=== PATIENT | female | born 2000 | race Asian ===

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

== ENCOUNTER 2022-01-15 12:51 | Outpatient (CLI) | payer MEDICAID ==
[2022-01-15 13:26] VITALS: BP 128/73
[2022-01-15] MEDS ORDERED: LACTATED RINGERS 500 ML IV ONE (14:14)
[2022-01-15 15:14] LABS: Bacteria,Urine 1+ /HPF (Negative); Mucus,Urine FEW /HPF
[2022-01-15 15:17] LABS: Bilirubin,Urine Negative (Negative); Blood,Urine Negative (Negative); Color,Urine Straw (Yellow); PH,Urine 5.5 (5.0-7.0); Urobilinogen,Urine < 2.0 mg/dL (<2.0)
== END 2022-01-15 15:38 | disposition home or self-care (01) ==
LOC: TRG 12:51 → APU 12:51 → TRG 15:38
PROVIDERS: ATTEND Obstetrics & Gynecology
DX: O47.03 False labor before 37 completed weeks of gestation, third trimester (principal); Z3A.29 29 weeks gestation of pregnancy
CPT/HCPCS: 59025; 81001

== ENCOUNTER 2022-01-18 15:19 | Outpatient (CLI) | payer MEDICAID ==
[2022-01-18] MEDS ORDERED: LACTATED RINGERS 1,000 ML ONE (16:31)
[2022-01-18] MEDS ORDERED: LACTATED RINGERS 1,000 ML IV ONE (17:00)
[2022-01-18] MEDS ORDERED: TERBUTALINE 1 MG/1 ML INJ SUB-Q SCH (17:00)
[2022-01-18 17:47] LABS: Blood,Urine NEG (Negative); Color,Urine Yellow (Yellow); Protein,Urine <15 mg/dL mg/dL (Negative); Urobilinogen,Urine < 2.0 mg/dL (<2.0)
[2022-01-18] MEDS ORDERED: BUTALB/ACETAMINOPHEN/CAFFEINE TAB PO ONE (18:00)
[2022-01-18 18:08] LABS: Bacteria,Urine 1+ /HPF (Negative); Bilirubin,Urine NEG (Negative); Mucus,Urine FEW /HPF; WBC,Urine < 1.0 /HPF (0.0-6.0)
[2022-01-18 18:34] VITALS: BP 128/60
[2022-01-18] MEDS ORDERED: LACTATED RINGERS 1,000 ML IV SCH (19:00)
== END 2022-01-18 20:10 | disposition home or self-care (01) ==
LOC: TRG 15:19 → APU 15:19 → TRG 20:10
PROVIDERS: ATTEND Obstetrics & Gynecology
DX: O26.893 Other specified pregnancy related conditions, third trimester (principal); R10.9 Unspecified abdominal pain; R51.9 Headache, unspecified; Z3A.30 30 weeks gestation of pregnancy
CPT/HCPCS: 36415; 81001; 82731; 84156

== ENCOUNTER 2022-01-19 14:00 | Inpatient (IN) | payer MEDICAID ==
[2022-01-19] MEDS ORDERED: LACTATED RINGERS 500 ML IV ONE (14:27)
[2022-01-19] MEDS ORDERED: LACTATED RINGERS 1,000 ML IV SCH (15:00)
[2022-01-19 17:01] LABS: Alanine Aminotransferase 11 units/L (7-56); Albumin 3.4 g/dL (3.9-5); Blood Urea Nitrogen 7 mg/dL (7-17); Calcium 8.9 mg/dL (8.4-10.2); Hemolysis Index 19
[2022-01-19 17:03] LABS: BUN/Creatinine Ratio 18
[2022-01-19 17:46] LABS: Creatinine,Urine 22.8 mg/dL (0.1-20.0)
[2022-01-19 18:07] LABS: Hematocrit 35.1 % (30.3-42.9); Mean Corpuscular HGB Conc 34 % (30-34); Mean Corpuscular Volume 91 fl (79-97); Platelet Count 244 K/mm3 (140-440); Red Blood Count 3.84 M/mm3 (3.65-5.03); Red Cell Distribution Width 12.6 % (13.2-15.2)
[2022-01-19 18:14] LABS: Bacteria,Urine 1+ /HPF (Negative); WBC,Urine < 1.0 /HPF (0.0-6.0)
[2022-01-19 18:15] LABS: Bilirubin,Urine Negative (Negative); Blood,Urine Negative (Negative); Color,Urine Yellow (Yellow); PH,Urine 6.5 (5.0-7.0); Urobilinogen,Urine < 2.0 mg/dL (<2.0)
[2022-01-19] MEDS ORDERED: DOCUSATE SODIUM 100 MG CAP PO PRN (19:52)
[2022-01-19] MEDS ORDERED: ACETAMINOPHEN 325 MG TAB PO PRN ×2 (19:52→22:01)
[2022-01-19] MEDS ORDERED: ACETAMINOPHEN 500 MG TAB PO ONE (20:00)
--- NOTE | 2022-01-19 20:19 | History and Physical Report ---
History of Present Illness Date of examination: 01/19/22 Date of admission: 01/19/22 Chief complaint: severe headache with left eye pain and dizziness since 01/15/22. Headaches are unrelieved by Tylenol. History of present illness: 21 y/o single AA @ 30.1 wks presented to [facility] with c/o severe headaches, left eye pain and dizziness since 01/15/22. She admitted to + and denied VB, LOF, UC, diplopia, scotoma, or epigastric pain. Pt was crying, sad and upset. She states she and her boyfriend had an argument today. She denied issues with domestic violence. Pt states she initiated her pnc early preg @ [facility] [place] location and has an uneventful preg. Pt states she came to the hospital on 01/15 and 01/18 with same complaints was diagnosed with a uti and sent home. Med/surg/ob/family hx is unremarkable. First several b/ps were slightly elevated above her normal otherwise pt's b/ps have been wnl. Urine PCR was 1.31 otherwise her PIH labs were wnl. Pt was admitted for 24hr obs, b/p monitoring, and a 24hr urine. The hospitalist was consulted and a CT scan of the head was ordered. Dr Louie was consulted and MD agreed with plan. Past History Past Medical History: no pertinent history Past Surgical History: no surgical history Family/Genetic History: none Social history: single, full code - Obstetrical History Expected Date of Delivery: 03/29/22 Actual Gestation: 30 Week(s) 1 Day(s) : 2 Para: 1 Hx # Term Pregnancies: 1 Spontaneous Abortions: 0 Induced : 0 Number of Living Children: 1 Medications and Allergies Allergies Allergy/AdvReac Type Severity Reaction Status Date / Time No Known Allergies Allergy Verified 10/16/20 11:22 Home Medications Medication Instructions Recorded Confirmed Last Taken Type One Daily Tablet 1 tab PO DAILY 10/16/20 10/16/20 1 Month Ago History ~09/16/20 Acetaminophen [Acetaminophen 8 650 mg PO Q8HR #30 tab 09/22/21 Unknown Rx Hour] Ondansetron [Zofran ODT TAB] 4 mg PO Q6HR PRN #20 tab.rapdis 09/22/21 Unknown Rx raNITIdine HCl [Zantac] 150 mg PO BID #30 tab 09/22/21 Unknown Rx Nitrofurantoin [place]/M-Cryst 100 mg PO Q12HR 7 Days #14 capsule 01/15/22 Unknown Rx [Macrobid CAP] Active Meds: Active Medications Acetaminophen (Acetaminophen 325 Mg Tab) 650 mg PO Q4H PRN PRN Reason: Pain MILD(1-3)/Fever >100.5/HINDS Docusate Sodium (Docusate Sodium 100 Mg Cap) 100 mg PO Q12H PRN PRN Reason: Constipation Lactated Ringer's (Lactated Ringers) 1,000 mls @ 125 mls/hr IV DIRECT STEFFANIE Multivitamins/Iron/Calcium ( [id number] Fumarate-Folic Acid Vit Tab) 1 each PO QDAY STEFFANIE Sodium Chloride (Sodium Chloride 0.9% 10 Ml Flush Syringe) 10 ml IV PRN PRN PRN Reason: LINE FLUSH Review of Systems Constitutional: other (severe headaches, left eye pain, and dizziness) Eyes: normal appearance Ears, nose, mouth and throat: deferred Breasts: normal Genitourinary: deferred Rectal Exam: deferred Psychiatric: anxiety, sadness/tearfullness - Vital Signs Vital signs: Vital Signs Pulse BP Pulse Ox 96 H 133/63 98 01/19/22 14:35 01/19/22 14:35 01/19/22 14:35 Temp Pulse Resp BP Pulse Ox 98.4 F 94 H 16 113/55 99 01/19/22 14:54 01/19/22 20:09 01/19/22 14:54 01/19/22 19:52 01/19/22 20:09 - Physical Exam Breasts: Positive: normal Abdomen: Positive: normal appearance, soft, normal bowel sounds Uterus: Positive: enlarged, normal contour, other (gravid) Extremities: Positive: normal - Obstetrical FHR: auscultation normal, category 1 Uterine Contraction Monitor Mode: External Uterine Contraction Pattern: Absent Uterine Tone Measurement Phase: Resting Results Result Diagrams: 01/19/22 16:35 01/19/22 16:35 Abnormal lab results 01/19/22 01/19/22 01/19/22 Range/Units 16:35 16:35 16:35 WBC (4.5-11.0) K/mm3 RDW (13.2-15.2) % Sodium 131 L (137-145) mmol/L Carbon Dioxide 21 L (22-30) mmol/L Creatinine 0.4 L (0.6-1.2) mg/dL Glucose 101 H (65-100) mg/dL Uric Acid 2.6 L (3.5-7.6) mg/dL Alkaline Phosphatase 154 H (35-129) units/L Albumin 3.4 L (3.9-5) g/dL Urine Creatinine 22.8 H (0.1-20.0) mg/dL 01/19/22 Range/Units 16:35 WBC 11.8 H (4.5-11.0) K/mm3 RDW 12.6 L (13.2-15.2) % Sodium (137-145) mmol/L Carbon Dioxide (22-30) mmol/L Creatinine (0.6-1.2) mg/dL Glucose (65-100) mg/dL Uric Acid (3.5-7.6) mg/dL Alkaline Phosphatase (35-129) units/L Albumin (3.9-5) g/dL Urine Creatinine (0.1-20.0) mg/dL All other labs normal. Assessment and Plan A: IUP@ 30.1 wks Teen preg Severe headaches with left eye pain Dizziness Protein creat ratio 1.31 P: Admit to L&D for 24hr obs and b/p monitoring CT of head w/o contrast per hospitalist 24hr urine and UDS BPP Continue Macrobid Psych consult Dr Louie consulted and agrees with plan - Patient Problems (1) Severe headache Current Visit: Yes Status: Acute (2) Dizziness Current Visit: Yes Status: Acute (3) Left eye pain Current Visit: Yes Status: Acute
[2022-01-19] MEDS ORDERED: BUTORPHANOL 2 MG/1 ML INJ IV PRN (21:53)
[2022-01-19] MEDS ORDERED: ZOLPIDEM 5 MG TAB PO PRN (21:54)
--- NOTE | 2022-01-19 21:58 | Cat Scan Report ---
CT HEAD WITHOUT CONTRAST INDICATION / CLINICAL INFORMATION: severe headaches. TECHNIQUE: All CT scans at this location are performed using CT dose reduction for ALARA by means of automated exposure control. COMPARISON: None available. FINDINGS: HEMORRHAGE: None. EXTRA-AXIAL SPACES: Normal in size and morphology for the patient's age. VENTRICULAR SYSTEM: Normal in size and morphology for the patient's age. CEREBRAL PARENCHYMA: No significant abnormality. No acute territorial infarct. MIDLINE SHIFT / HERNIATION: None. CEREBELLUM / BRAINSTEM: No significant abnormality. ORBITS: Normal as visualized. SOFT TISSUES: No significant abnormality. SKULL: No significant abnormality. PARANASAL SINUSES / MASTOID AIR CELLS: There is near-complete opacification of the maxillary sinuses. There is complete opacification of the ethmoid air cells. Air-fluid levels are noted in the sphenoid sinuses. ADDITIONAL FINDINGS: None. IMPRESSION: 1. No acute intracranial abnormality. 2. Extensive sinusitis as described above. Signer Name: Matias Duncan MD Signed: 01/19/2022 9:54 PM Workstation Name: [id number]
--- NOTE | 2022-01-19 22:02 | Ultrasound Report ---
ULTRASOUND BIOPHYSICAL PROFILE INDICATION: 30.1 wks c/o severe headache. COMPARISON: None available. FINDINGS: breathing movement = 2 Gross body movement = 2 tone = 2 Qualitative amniotic fluid volume = 2 Total biophysical score = 01/20 Presentation is Cephalic. heart rate is 143 beats per minute. IMPRESSION: biophysical profile = 01/20 Signer Name: Matias Duncan MD Signed: 01/19/2022 9:58 PM Workstation Name: [id number]
[2022-01-19] MEDS ORDERED: BUTORPHANOL 2 MG/1 ML INJ IV ONE (23:00)
[2022-01-19] MEDS ORDERED: NITROFURANTOIN MONOHYD/M-CRYST 100 MG CAP PO SCH (23:00)
[2022-01-20 02:24] LABS: Amphetamine Screen,Urine PRESUMPTIVE NEGATIVE; Benzodiazepines Screen,Urine PRESUMPTIVE NEGATIVE; Cannabinoid Screen,Urine PRESUMPTIVE NEGATIVE; Cocaine Screen,Urine PRESUMPTIVE NEGATIVE; Methadone Screen,Urine PRESUMPTIVE NEGATIVE; Opiate Screen,Urine PRESUMPTIVE NEGATIVE
[2022-01-20] MEDS ORDERED: ONDANSETRON 4 MG/2 ML INJ IV NR (08:00)
[2022-01-20] MEDS: SODIUM CHLORIDE NASAL SPRAY 44ML NS SCH ×3 (08:05→20:16)
--- NOTE | 2022-01-20 10:28 | Event Note ---
Date: 01/20/22 Stable but still has headaches. BPs normal. CT of skull showed "sinusitis". 24HR urine collection ongoing. Spoke with Dr. Romo about the CT findings and she assumed care of patient. Patient's RN Cecilia was tasked with calling the Hospitalist to manage sinusitis.
[2022-01-20] MEDS: BUTALB/ACETAMINOPHEN/CAFFEINE TAB PO PRN (11:20)
--- NOTE | 2022-01-20 11:25 | Progress Note ---
Assessment and Plan A) IUP @30 2/7 weeks Headaches Extensive Sinusitis on CT R/o Preeclampsia P) Headahce most likely due to sinusitis Hospitalist consult to manage sinusitis R/o Preeclampsia. Doubt pre-eclampsia. Normal PIH labs, Normal BPs. 24 hour urine ongoing. Repeat PIH labs today. Pain control for headache Steroids D/c macrobid. Normal UA. Subjective Date of service: 01/20/22 Principal diagnosis: Headaches, at 30 2/7 weeks Interval history: Pt. complain of headaches /. No blurry vision, epigastric pain or scotoma. Good FM. No VB or LOF. Nausea and vomiting. Objective - Constitutional Vitals: Vital Signs - 12hr 01/19/22 01/20/22 01/20/22 23:24 06:35 07:05 Pulse Rate 77 Respiratory 18 18 Rate Blood Pressure 118/63 O2 Sat by Pulse Oximetry [ Bilateral] 01/20/22 01/20/22 01/20/22 08:05 10:05 10:27 Pulse Rate 86 89 Respiratory Rate Blood Pressure 111/57 121/59 O2 Sat by Pulse 100 Oximetry [ Bilateral] 01/20/22 01/20/22 11:05 11:20 Pulse Rate 80 Respiratory 16 Rate Blood Pressure 115/61 O2 Sat by Pulse Oximetry [ Bilateral] General appearance: Present: no acute distress - Respiratory Respiratory effort: normal Respiratory: bilateral: CTA - Cardiovascular Rhythm: regular Extremities: no ischemia, No edema, normal color, Full ROM - Gastrointestinal General gastrointestinal: Present: soft, non-tender - Neurologic Neurologic: other (reflexes normal bilaterally) - Labs CBC & Chem 7: 01/19/22 16:35 01/19/22 16:35 Labs: Abnormal lab results 01/19/22 01/19/22 01/19/22 Range/Units 16:35 16:35 16:35 WBC (4.5-11.0) K/mm3 RDW (13.2-15.2) % Sodium 131 L (137-145) mmol/L Carbon Dioxide 21 L (22-30) mmol/L Creatinine 0.4 L (0.6-1.2) mg/dL Glucose 101 H (65-100) mg/dL Uric Acid 2.6 L (3.5-7.6) mg/dL Alkaline Phosphatase 154 H (35-129) units/L Albumin 3.4 L (3.9-5) g/dL Urine Creatinine 22.8 H (0.1-20.0) mg/dL 01/19/22 Range/Units 16:35 WBC 11.8 H (4.5-11.0) K/mm3 RDW 12.6 L (13.2-15.2) % Sodium (137-145) mmol/L Carbon Dioxide (22-30) mmol/L Creatinine (0.6-1.2) mg/dL Glucose (65-100) mg/dL Uric Acid (3.5-7.6) mg/dL Alkaline Phosphatase (35-129) units/L Albumin (3.9-5) g/dL Urine Creatinine (0.1-20.0) mg/dL - Imaging and cardiology CT Scan - head: other (extensive sinusitis) Medications & Allergies - Medications Allergies/Adverse Reactions: Allergies No Known Allergies Allergy (Verified 10/16/20 11:22) Home Medications: Home Medications Medication Instructions Recorded Confirmed Last Taken Type One Daily Tablet 1 tab PO DAILY 10/16/20 10/16/20 1 Month Ago History ~09/16/20 Acetaminophen [Acetaminophen 8 650 mg PO Q8HR #30 tab 09/22/21 Unknown Rx Hour] Ondansetron [Zofran ODT TAB] 4 mg PO Q6HR PRN #20 tab.rapdis 09/22/21 Unknown Rx raNITIdine HCl [Zantac] 150 mg PO BID #30 tab 09/22/21 Unknown Rx Nitrofurantoin [place]/M-Cryst 100 mg PO Q12HR 7 Days #14 capsule 01/15/22 Unknown Rx [Macrobid CAP] Active Medications: Generic Name Dose Route Start Last Admin Trade Name Freq PRN Reason Stop Dose Admin Acetaminophen 650 mg 01/19/22 22:01 01/20/22 06:35 Acetaminophen 325 Mg Tab PO 650 mg Q4H PRN Administration Pain, Mild (1-3) Acetaminophen/Butalbital/Caffeine 2 tab 01/20/22 11:00 01/20/22 11:20 Butalb/Acetaminophen/Caffeine Tab PO 2 tab Q4H PRN Administration Headache Docusate Sodium 100 mg 01/19/22 19:52 Docusate Sodium 100 Mg Cap PO Q12H PRN Constipation Lactated Ringer's 1,000 mls @ 125 mls/hr 01/19/22 15:00 Lactated Ringers IV DIRECT STEFFANIE Multivitamins/Iron/Calcium 1 each 01/20/22 10:00 [id number] Fumarate-Folic Acid Vit Tab PO QDAY [facility] Nitrofurantoin Macrocrystals 100 mg 01/19/22 23:00 Nitrofurantoin Monohyd/M-Cryst 100 Mg Cap PO 01/23/22 10:01 Q12HR [facility] Ondansetron HCl 8 mg 01/20/22 08:00 01/20/22 08:00 Ondansetron 4 Mg/2 Ml Inj IV 01/20/22 13:00 8 mg ONCE NR Administration Sodium Chloride 10 ml 01/19/22 19:52 Sodium Chloride 0.9% 10 Ml Flush Syringe IV PRN PRN LINE FLUSH Sodium Chloride 1 spray 01/20/22 10:00 01/20/22 08:05 Sodium Chloride Nasal [place] 44ml NS 0.44 spray QID STEFFANIE Administration Zolpidem Tartrate 5 mg 01/19/22 21:54 Zolpidem 5 Mg Tab PO QHS PRN Sleep
[2022-01-20] MEDS: PRENATAL VIT27-FE FUMARATE-FOLIC ACID VIT TAB PO SCH (12:02)
[2022-01-20 13:44] LABS: Alanine Aminotransferase 12 units/L (7-56); Uric Acid 2.3 mg/dL (3.5-7.6)
--- NOTE | 2022-01-20 13:51 | Consultation ---
History of Present Illness - Reason for Consult Consult date: 01/20/22 Reason for consult: Mental health evaluation - Chief Complaint Chief complaint: severe headache with left eye pain and dizziness since 01/15/22. Headaches are unrelieved by Tylenol. - History of Present Psychiatric Illness The patient is a 21 year old female with no psychiatric history who was consulted for depression. The patient was seen today. She is calm alert and oriented x4. The patient reports feeling overwhelmed sometimes. She denies being depressed or excessively anxious. She states her support system as her family; she states she is employed and enjoys working. She reports stressor such as her relationship with her father; she became tearful during the interview. She denies any current suicidal/homicidal and denies hallucinations. PAST PSYCHIATRIC HISTORY Diagnoses: Denies Suicide attempts or Self-harm behavior: Denies Prior psychiatric hospitalizations: Denies Substance Abuse history: Denies Previous psychiatric medications tried:Denies Outpatient treatment: Denies PAST MEDICAL HISTORY: None reported Family Psychiatric History: None reported or documented SOCIAL HISTORY Living arrangement: Lives with mother Marital status: Single Employment status: Disabled REVIEW OF SYSTEMS Constitutional: Negative for weight loss ENT: Negative for stridor Respiratory: Negative for cough or hemoptysis All other systems reviewed and are negative MENTAL STATUS EXAMINATION General Appearance and Behavior: Age appropriate, good hygiene, wearing appropriate clothes, good eye contact, calm, cooperative Cooperation: Participating/engaged, but Guarded Psychomotor Behavior: Psychomotor normal Mood: OK Affect and affective range: congruent with stated mood Thought Process: goal directed Thought Content: Denies Speech: Normal tone and pace Suicidal Ideation: Denies Homicidal Ideation: Denies Hallucinations: Denies Delusions: None elicited Impulse Control: Normal Insight and Judgment: Limited insight and judgment Memory: Limited Attention: divided Orientation: Alert, oriented Assessment and Plan Mental health evaluation Treatment Plan Continue home Meds Risks, benefits and alternatives of medications discussed with the patient, questions answered and consent obtained from patient. PSYCHOTHERAPY: Supportive psychotherapy provided MEDICAL: Per primary team DELIRIUM PRECAUTIONS: Please re-orient patient frequently, keep lights on during the day, and minimize benzodiazepines and opiates as these medications could worsen patient's confusion. LENDING CONSULTANT: Defer to primary DISPOSITION:Do not recommend acute inpatient psychiatric hospitalization at this time. Systems Support Engineer will provide patient with psychiatric outpatient resources. Will sign off. Thank you for the consult. Please contact with any questions and/or concerns. Case staffed with Dr. Raines Medications and Allergies Medications and Allergies Allergies Allergy/AdvReac Type Severity Reaction Status Date / Time No Known Allergies Allergy Verified 10/16/20 11:22 Home Medications Medication Instructions Recorded Confirmed Last Taken Type One Daily Tablet 1 tab PO DAILY 10/16/20 10/16/20 1 Month Ago History ~09/16/20 Acetaminophen [Acetaminophen 8 650 mg PO Q8HR #30 tab 09/22/21 Unknown Rx Hour] Ondansetron [Zofran ODT TAB] 4 mg PO Q6HR PRN #20 tab.rapdis 09/22/21 Unknown Rx raNITIdine HCl [Zantac] 150 mg PO BID #30 tab 09/22/21 Unknown Rx Nitrofurantoin [place]/M-Cryst 100 mg PO Q12HR 7 Days #14 capsule 01/15/22 Unknown Rx [Macrobid CAP] Active Meds: Active Medications Acetaminophen (Acetaminophen 325 Mg Tab) 650 mg PO Q4H PRN PRN Reason: Pain, Mild (1-3) Last Admin: 01/20/22 06:35 Dose: 650 mg Acetaminophen/Butalbital/Caffeine (Butalb/Acetaminophen/Caffeine Tab) 2 tab PO Q4H PRN PRN Reason: Headache Last Admin: 01/20/22 11:20 Dose: 2 tab Betamethasone Acet/Betameth SodPhos (Betamet Acet/Betamet Na Ph 6 Mg/Ml Inj 5 Ml Mdv) 12 mg IM Q24H [facility] Stop: 01/21/22 13:01 Docusate Sodium (Docusate Sodium 100 Mg Cap) 100 mg PO Q12H PRN PRN Reason: Constipation Lactated Ringer's (Lactated Ringers) 1,000 mls @ 125 mls/hr IV DIRECT [facility] Multivitamins/Iron/Calcium ( [id number]-[id number] Fumarate-Folic Acid Vit Tab) 1 each PO QDAY [facility] Last Admin: 01/20/22 12:02 Dose: 1 each Nitrofurantoin Macrocrystals (Nitrofurantoin Monohyd/M-Cryst 100 Mg Cap) 100 mg PO Q12HR [facility] Stop: 01/23/22 10:01 Last Admin: 01/20/22 12:02 Dose: 100 mg Sodium Chloride (Sodium Chloride 0.9% 10 Ml Flush Syringe) 10 ml IV PRN PRN PRN Reason: LINE FLUSH Sodium Chloride (Sodium Chloride Nasal [place] 44ml) 1 spray NS QID STEFFANIE Last Admin: 01/20/22 08:05 Dose: 0.44 spray Zolpidem Tartrate (Zolpidem 5 Mg Tab) 5 mg PO QHS PRN PRN Reason: Sleep Mental Status Exam - Vital signs Last Vital Signs Temp 98.3 F 01/19/22 22:15 Pulse 83 01/20/22 13:05 Resp 16 01/20/22 11:20 BP 103/52 01/20/22 13:05 Pulse Ox 100 01/20/22 10:27 Results Result Diagrams: 01/19/22 16:35 01/20/22 13:01 Abnormal lab results 01/19/22 01/19/22 01/19/22 Range/Units 16:35 16:35 16:35 WBC (4.5-11.0) K/mm3 RDW (13.2-15.2) % Sodium 131 L (137-145) mmol/L Carbon Dioxide 21 L (22-30) mmol/L Creatinine 0.4 L (0.6-1.2) mg/dL Glucose 101 H (65-100) mg/dL Uric Acid 2.6 L (3.5-7.6) mg/dL Alkaline Phosphatase 154 H (35-129) units/L Albumin 3.4 L (3.9-5) g/dL Urine Creatinine 22.8 H (0.1-20.0) mg/dL 01/19/22 Range/Units 16:35 WBC 11.8 H (4.5-11.0) K/mm3 RDW 12.6 L (13.2-15.2) % Sodium (137-145) mmol/L Carbon Dioxide (22-30) mmol/L Creatinine (0.6-1.2) mg/dL Glucose (65-100) mg/dL Uric Acid (3.5-7.6) mg/dL Alkaline Phosphatase (35-129) units/L Albumin (3.9-5) g/dL Urine Creatinine (0.1-20.0) mg/dL All other labs normal.
[2022-01-20 14:57] LABS: Hematocrit 35.9 % (30.3-42.9); Mean Corpuscular HGB Conc 33 % (30-34); Mean Corpuscular Volume 93 fl (79-97); Platelet Count 259 K/mm3 (140-440); Red Blood Count 3.89 M/mm3 (3.65-5.03); Red Cell Distribution Width 12.7 % (13.2-15.2)
[2022-01-20] MEDS: BETAMET ACET/BETAMET NA PH 6 MG/ML INJ 5 ML MDV IM SCH (15:10)
[2022-01-20] MEDS: BUTORPHANOL 2 MG/1 ML INJ IV PRN ×2 (15:11→20:31)
--- NOTE | 2022-01-20 18:03 | Procedure Note ---
OB Delivery Note - Delivery Date of Delivery: 01/20/22 Surgeon: HERMINIA ZAMARRIPA Estimated blood loss: <100cc - Vaginal Delivery presentation: vertex Delivery position: OA Intrapartum events: none Delivery induction: none Delivery monitor: external FHT, external uterine Route of delivery: Delivery placenta: spontaneous Delivery cord: nuchal cord Episiotomy: none Delivery laceration: 1st degree Delivery repair: vicryl Anesthesia: none Delivery comments: Arrived in labor room. Pt. screaming and laying on her side. 's head almost out of vagina. Patient pushing. Infant's head delivered without complication. Nuchal cord noted. Unable to reduced cord since pt. pushing and out of control. 's body delivered. Nuchal cord reduced. Cord clamped and cut. Infant handed off to nurse. Meconium noted. Placenta delivered spontaneously and intact. Uterus firm. First degree perineal laceration repair with 2-0 vicryl. Good hemostasis. Pt. tolerated delivery well. EBL - 500ml.
[2022-01-20] MEDS ORDERED: ALUM-MAG HYDROXIDE-SIMETHICONE 200-200-20MG/5ML ORAL LIQD 30 ML PO PRN (18:35)
[2022-01-20] MEDS ORDERED: DOCUSATE SODIUM 100 MG CAP PO PRN (18:35)
--- NOTE | 2022-01-20 18:40 | Consultation ---
History of Present Illness - Reason for Consult Consult date: 01/20/22 Medical management Requesting physician: ASHLEY AVALOS - History of Present Illness 21 y/o single AA @ 30.1 wks presented to [facility] with c/o severe headaches, left eye pain and dizziness since 01/15/22. She admitted to + and denied VB, LOF, UC, diplopia, scotoma, or epigastric pain. Pt was crying, sad and upset. She states she and her boyfriend had an argument today. She denied issues with domestic violence. Pt states she initiated her pnc early preg @ [facility] [place] location and has an uneventful preg. Pt states she came to the hospital on 01/15 and 01/18 with same complaints was diagnosed with a uti and sent home. Med/surg/ob/family hx is unremarkable. First several b/ps were slightly elevated above her normal otherwise pt's b/ps have been wnl. Urine PCR was 1.31 otherwise her PIH labs were wnl. Pt was admitted for 24hr obs, b/p monitoring, and a 24hr urine. Patient complains of sinus congestion and headache for 1 week. Nasal drainage present. From clear to green. No fever. Past History Past Medical History: no pertinent history Past Surgical History: no surgical history Family/Genetic History: none Social history: single, full code - Obstetrical History Expected Date of Delivery: 03/29/22 Actual Gestation: 30 Week(s) 1 Day(s) : 2 Para: 1 Hx # Term Pregnancies: 1 Spontaneous Abortions: 0 Induced : 0 Number of Living Children: 1 Past History Social history: single, full code Medications and Allergies Allergies Allergy/AdvReac Type Severity Reaction Status Date / Time No Known Allergies Allergy Verified 01/20/22 20:14 Home Medications Medication Instructions Recorded Confirmed Last Taken Type One Daily Tablet 1 tab PO DAILY 10/16/20 10/16/20 1 Month Ago History ~09/16/20 Acetaminophen [Acetaminophen 8 650 mg PO Q8HR #30 tab 09/22/21 Unknown Rx Hour] Ondansetron [Zofran ODT TAB] 4 mg PO Q6HR PRN #20 tab.rapdis 09/22/21 Unknown Rx raNITIdine HCl [Zantac] 150 mg PO BID #30 tab 09/22/21 Unknown Rx Nitrofurantoin [place]/M-Cryst 100 mg PO Q12HR 7 Days #14 capsule 01/15/22 Unknown Rx [Macrobid CAP] Active Meds: Active Medications Acetaminophen (Acetaminophen 325 Mg Tab) 650 mg PO Q4H PRN PRN Reason: Pain, Mild (1-3) Last Admin: 01/20/22 06:35 Dose: 650 mg Acetaminophen/Butalbital/Caffeine (Butalb/Acetaminophen/Caffeine Tab) 2 tab PO Q4H PRN PRN Reason: Headache Last Admin: 01/20/22 11:20 Dose: 2 tab Betamethasone Acet/Betameth SodPhos (Betamet Acet/Betamet Na Ph 6 Mg/Ml Inj 5 Ml Mdv) 12 mg IM Q24H [facility] Stop: 01/21/22 13:01 Last Admin: 01/20/22 15:10 Dose: 12 mg Butorphanol Tartrate (Butorphanol 2 Mg/1 Ml Inj) 2 mg IV Q4HR PRN PRN Reason: Labor Pain Last Admin: 01/20/22 15:11 Dose: 2 mg Docusate Sodium (Docusate Sodium 100 Mg Cap) 100 mg PO Q12H PRN PRN Reason: Constipation Lactated Ringer's (Lactated Ringers) 1,000 mls @ 125 mls/hr IV DIRECT [facility] Multivitamins/Iron/Calcium ( [id number]-[id number] Fumarate-Folic Acid Vit Tab) 1 each PO QDAY [facility] Last Admin: 01/20/22 12:02 Dose: 1 each Sodium Chloride (Sodium Chloride 0.9% 10 Ml Flush Syringe) 10 ml IV PRN PRN PRN Reason: LINE FLUSH Sodium Chloride (Sodium Chloride Nasal [place] 44ml) 1 spray NS QID [facility] Last Admin: 01/20/22 14:34 Dose: 1 spray Zolpidem Tartrate (Zolpidem 5 Mg Tab) 5 mg PO QHS PRN PRN Reason: Sleep Exam - Constitutional Vitals: Temp Pulse Resp BP Pulse Ox 97.9 F 71 16 110/57 100 01/20/22 18:04 01/20/22 18:05 01/20/22 18:04 01/20/22 18:05 01/20/22 18:04 General appearance: Present: no acute distress, well-nourished - EENT Eyes: Present: PERRL ENT: hearing intact, clear oral mucosa, other (Sinus tenderness present) - Neck Neck: Present: supple, normal ROM - Respiratory Respiratory effort: normal Respiratory: bilateral: CTA - Cardiovascular Heart rate: 78 Rhythm: regular Heart Sounds: Present: S1 & S2. Absent: rub, click - Extremities Extremities: pulses symmetrical, No edema Peripheral Pulses: within normal limits - Abdominal General gastrointestinal: Present: soft, non-tender, non-distended, normal bowel sounds Female genitourinary: Present: normal - Integumentary Integumentary: Present: clear, warm, dry - Musculoskeletal Musculoskeletal: gait normal, strength equal bilaterally - Psychiatric Psychiatric: appropriate mood/affect, intact judgment & insight - Neurologic Neurologic: CNII-XII intact, moves all extremities - Allied Health Allied health notes reviewed: nursing, case management Results - Labs CBC & Chem 7: 01/20/22 13:01/20/22 13:01 Labs: Abnormal lab results 01/20/22 01/20/22 Range/Units 13: 13:01 RDW 12.7 L (13.2-15.2) % Creatinine 0.4 L (0.6-1.2) mg/dL Uric Acid 2.3 L (3.5-7.6) mg/dL Head CT No acute intracranial abnormality Near complete opacification of the maxillary sinuses There is complete opacification of the ethmoid air cells. Air-fluid levels are noted in the sphenoid sinuses. Assessment and Plan - Patient Problems (1) Acute sinusitis Current Visit: Yes Status: Acute Qualifiers: Sinusitis location: maxillary Plan to address problem: Patient has acute maxillary sinusitis and ethmoid sinusitis. Patient started on cephalexin 500 4 times daily for 10 days and prednisone 10 mg daily for 10 days. Patient needs to follow-up with ENT as an outpatient for possible endoscopic drainage of maxillary sinuses. Patient is COVID-negative. We will follow-up tomorrow.
[2022-01-20] MEDS: predniSONE 10 MG TAB PO SCH (20:15)
[2022-01-20] MEDS: cephALEXin 500 MG CAP PO SCH (20:15)
[2022-01-21 00:14] LABS: Amphetamine Screen,Urine PRESUMPTIVE NEGATIVE; Benzodiazepines Screen,Urine PRESUMPTIVE NEGATIVE; Cannabinoid Screen,Urine PRESUMPTIVE NEGATIVE; Cocaine Screen,Urine PRESUMPTIVE NEGATIVE; Creatinine,Urine 65.7 mg/dL (0.1-20.0); Methadone Screen,Urine PRESUMPTIVE NEGATIVE; Opiate Screen,Urine PRESUMPTIVE NEGATIVE
[2022-01-21 00:19] LABS: Creatinine 24 Hour,Urine 1.4 (0.8-2.8); Total Volume,Urine 2200 ml
[2022-01-21] MEDS: cephALEXin 500 MG CAP PO SCH ×4 (00:52→18:42)
[2022-01-21] MEDS: BUTORPHANOL 2 MG/1 ML INJ IV PRN ×4 (00:52→15:21)
[2022-01-21] MEDS: SODIUM CHLORIDE NASAL SPRAY 44ML NS SCH (05:16)
[2022-01-21] MEDS: PRENATAL VIT27-FE FUMARATE-FOLIC ACID VIT TAB PO SCH (10:07)
[2022-01-21] MEDS: predniSONE 10 MG TAB PO SCH (10:07)
--- NOTE | 2022-01-21 14:11 | Progress Note ---
Assessment and Plan HD#3, IUP at 30.3wk with extensive sinusitis, persistent headache; normal kidney function, not preeclampsia and requiring evaluation and intervention by ENT 1. Appreciate hospitalist consult 2. Will continue keflex and prednisone and will no ENT available at [facility], transfer to facility for higher level care 3. Continue prn stadol, since pt not amenable to oral narcotics All questions encouraged and answered Subjective Date of service: 01/21/22 Principal diagnosis: Headaches, extensive sinusitis, IUP at 30.3wks Interval history: pt states her headache is 9/10 and relieved with stadol and she is not sure percocet is safe for her baby when I offered oral narcotics. pt admits to movement. pt wants to take a shower. Objective - Constitutional Vitals: Vital Signs - 12hr 01/21/22 01/21/22 01/21/22 05:04 05:06 05:55 Temperature 98.1 F Pulse Rate 80 75 Respiratory 16 18 Rate Respiratory 18 Rate [Head] Blood Pressure 137/66 Blood Pressure 137/66 [Left] O2 Sat by Pulse 98 90 Oximetry 01/21/22 01/21/22 01/21/22 09:30 09:35 09:40 Temperature Pulse Rate 25 L 89 86 Respiratory Rate Respiratory Rate [Head] Blood Pressure Blood Pressure [Left] O2 Sat by Pulse 79 L 97 97 Oximetry 01/21/22 01/21/22 01/21/22 09:45 09:50 09:55 Temperature Pulse Rate 94 H 99 H 95 H Respiratory Rate Respiratory Rate [Head] Blood Pressure Blood Pressure [Left] O2 Sat by Pulse 96 96 96 Oximetry 01/21/22 01/21/22 01/21/22 10:00 10:05 10:10 Temperature Pulse Rate 94 H 87 108 H Respiratory Rate Respiratory Rate [Head] Blood Pressure Blood Pressure [Left] O2 Sat by Pulse 95 97 97 Oximetry 01/21/22 01/21/22 01/21/22 10:15 10:20 10:21 Temperature Pulse Rate 76 71 71 Respiratory Rate Respiratory Rate [Head] Blood Pressure Blood Pressure [Left] O2 Sat by Pulse 97 96 93 Oximetry 01/21/22 01/21/22 01/21/22 10:25 10:30 10:35 Temperature Pulse Rate 77 81 81 Respiratory Rate Respiratory Rate [Head] Blood Pressure Blood Pressure [Left] O2 Sat by Pulse 95 95 92 Oximetry 01/21/22 01/21/22 01/21/22 10:40 10:41 10:45 Temperature Pulse Rate 84 74 75 Respiratory Rate Respiratory Rate [Head] Blood Pressure Blood Pressure [Left] O2 Sat by Pulse 94 92 95 Oximetry 01/21/22 01/21/22 01/21/22 10:50 10:55 11:00 Temperature Pulse Rate 76 68 67 Respiratory Rate Respiratory Rate [Head] Blood Pressure Blood Pressure [Left] O2 Sat by Pulse 95 95 95 Oximetry 01/21/22 01/21/22 01/21/22 11:05 11:10 11:15 Temperature Pulse Rate 68 69 78 Respiratory Rate Respiratory Rate [Head] Blood Pressure Blood Pressure [Left] O2 Sat by Pulse 95 96 96 Oximetry 01/21/22 01/21/22 01/21/22 11:20 11:25 11:30 Temperature Pulse Rate 74 65 73 Respiratory Rate Respiratory Rate [Head] Blood Pressure Blood Pressure [Left] O2 Sat by Pulse 97 98 99 Oximetry 01/21/22 01/21/22 01/21/22 11:33 11:35 11:38 Temperature Pulse Rate 79 81 88 Respiratory Rate Respiratory Rate [Head] Blood Pressure Blood Pressure [Left] O2 Sat by Pulse 83 L 98 90 Oximetry 01/21/22 01/21/22 01/21/22 11:40 11:45 11:50 Temperature Pulse Rate 75 66 71 Respiratory Rate Respiratory Rate [Head] Blood Pressure Blood Pressure [Left] O2 Sat by Pulse 98 97 97 Oximetry 01/21/22 01/21/22 01/21/22 11:55 12:00 12:05 Temperature Pulse Rate 73 80 72 Respiratory Rate Respiratory Rate [Head] Blood Pressure Blood Pressure [Left] O2 Sat by Pulse 96 96 96 Oximetry 01/21/22 01/21/22 01/21/22 12:10 12:15 12:20 Temperature Pulse Rate 75 72 76 Respiratory Rate Respiratory Rate [Head] Blood Pressure Blood Pressure [Left] O2 Sat by Pulse 96 96 96 Oximetry 01/21/22 01/21/22 01/21/22 12:25 12:30 12:35 Temperature Pulse Rate 72 78 80 Respiratory Rate Respiratory Rate [Head] Blood Pressure Blood Pressure [Left] O2 Sat by Pulse 99 98 97 Oximetry 01/21/22 01/21/22 01/21/22 12:40 12:45 12:50 Temperature Pulse Rate 82 83 79 Respiratory Rate Respiratory Rate [Head] Blood Pressure Blood Pressure [Left] O2 Sat by Pulse 96 97 96 Oximetry 01/21/22 01/21/22 01/21/22 12:55 13:00 13:02 Temperature Pulse Rate 79 73 81 Respiratory Rate Respiratory Rate [Head] Blood Pressure Blood Pressure [Left] O2 Sat by Pulse 97 98 93 Oximetry 01/21/22 01/21/22 01/21/22 13:05 13:10 13:15 Temperature Pulse Rate 74 89 82 Respiratory Rate Respiratory Rate [Head] Blood Pressure Blood Pressure [Left] O2 Sat by Pulse 97 96 99 Oximetry General appearance: Present: mild distress - Neck Neck: normal ROM, other (tender on left maxilla) - Respiratory Respiratory effort: normal - Cardiovascular Rhythm: regular Extremities: No edema - Gastrointestinal General gastrointestinal: Present: soft - Genitourinary Female genitourinary: deferred - Integumentary Integumentary: warm, dry - Neurologic Neurologic: moves all extremities - Psychiatric Psychiatric: appropriate mood/affect - Labs CBC & Chem 7: 01/20/22 13:01 01/20/22 13:01 Labs: Abnormal lab results 01/19/22 01/20/22 Range/Units 22:00 13:01 RDW 12.7 L (13.2-15.2) % Urine Creatinine 65.7 H (0.1-20.0) mg/dL Ur Total Protein 24 Hr 220.00 H (2-200) mg/dL Medications & Allergies - Medications Allergies/Adverse Reactions: Allergies No Known Allergies Allergy (Verified 01/20/22 20:14) Home Medications: Home Medications Medication Instructions Recorded Confirmed Last Taken Type One Daily Tablet 1 tab PO DAILY 10/16/20 10/16/20 1 Month Ago History ~09/16/20 Acetaminophen [Acetaminophen 8 650 mg PO Q8HR #30 tab 09/22/21 Unknown Rx Hour] Ondansetron [Zofran ODT TAB] 4 mg PO Q6HR PRN #20 tab.rapdis 09/22/21 Unknown Rx raNITIdine HCl [Zantac] 150 mg PO BID #30 tab 09/22/21 Unknown Rx Nitrofurantoin Dougherty/M-Cryst 100 mg PO Q12HR 7 Days #14 capsule 01/15/22 Unknown Rx [Macrobid CAP] Active Medications: Generic Name Dose Route Start Last Admin Trade Name Freq PRN Reason Stop Dose Admin Acetaminophen 650 mg 01/19/22 22:01 01/20/22 06:35 Acetaminophen 325 Mg Tab PO 650 mg Q4H PRN Administration Pain, Mild (1-3) Acetaminophen/Butalbital/Caffeine 2 tab 01/20/22 11:00 01/20/22 11:20 Butalb/Acetaminophen/Caffeine Tab PO 2 tab Q4H PRN Administration Headache Al Hydrox/Mg Hydrox/Simethicone 30 ml 01/20/22 18:35 Alum-Mag Hydroxide-Simethicone [id number]/5ml Oral Liqd 30 Ml PO Q6H PRN Indigestion Butorphanol Tartrate 2 mg 01/20/22 14:35 01/21/22 10:07 Butorphanol 2 Mg/1 Ml Inj IV 2 mg Q4HR PRN Administration Labor Pain Cephalexin 500 mg 01/20/22 20:00 01/21/22 13:21 Cephalexin 500 Mg Cap PO 500 mg Q6HR STEFFANIE Administration Protocol Docusate Sodium 100 mg 01/19/22 19:52 Docusate Sodium 100 Mg Cap PO Q12H PRN Constipation Docusate Sodium 100 mg 01/20/22 18:35 Docusate Sodium 100 Mg Cap PO Q12H PRN Constipation Lactated Ringer's 1,000 mls @ 125 mls/hr 01/19/22 15:00 Lactated Ringers IV DIRECT STEFFANIE Multivitamins/Iron/Calcium 1 each 01/20/22 10:00 01/21/22 10:07 [id number] Fumarate-Folic Acid Vit Tab PO 1 each QDAY STEFFANIE Administration Prednisone 10 mg 01/20/22 20:00 01/21/22 10:07 Prednisone 10 Mg Tab PO 10 mg QDAY STEFFANIE Administration Sodium Chloride 10 ml 01/19/22 19:52 Sodium Chloride 0.9% 10 Ml Flush Syringe IV PRN PRN LINE FLUSH Sodium Chloride 1 spray 01/20/22 10:00 01/21/22 05:16 Sodium Chloride Nasal [place] 44ml NS 1 spray QID STEFFANIE Administration Zolpidem Tartrate 5 mg 01/19/22 21:54 01/21/22 00:10 Zolpidem 5 Mg Tab PO 5 mg QHS PRN Administration Sleep
--- NOTE | 2022-01-21 15:46 | Event Note ---
Date: 01/21/22 pt notified that ENT not available here and pt pain continues to worsen with pain mgt. Pt offered to a facility that takes care of high risk with ENT available such as [place]. pt accepted and transfer process done and pt accepted by Dr. Aguirre at [facility]. Pt agrees with plan of care. All questions encouraged and answered.
[2022-01-21] MEDS ORDERED: BETAMET ACET/BETAMET NA PH 6 MG/ML INJ 5 ML MDV IM SCH (16:00)
[2022-01-21] MEDS: BETAMET ACET/BETAMET NA PH 6 MG/ML INJ 5 ML MDV IM SCH (16:20)
[2022-01-21] MEDS: BUTALB/ACETAMINOPHEN/CAFFEINE TAB PO PRN (19:52)
[2022-01-21 20:58] VITALS: BP 112/56
--- NOTE | 2022-01-22 09:35 | Discharge Summary ---
Providers - Providers Date of Admission: 01/19/22 19:53 Date of discharge: 01/21/22 Attending physician: CHANO GUSTAFSON 01/19/22 Consult to Case Management [CONS] Routine Services Needed at Discharge: Other Comment:: psych 01/19/22 20:02 Consult to Mental Health [CONS] Routine Reason For Exam: depression 01/20/22 10:41 Consult to Physician [CONS] Urgent Comment: Consulting Provider: MIN DIAZ Physician Instructions: Reason For Exam: headache, sinusitis Primary care physician: CHANO GUSTAFSON Hospitalization Reason for admission: other ( with severe headache, extensive sinusitis on CT scan) Hospital course: preg at 30.1wks admitted with severe headache, preeclampsia work up negative and CT scan reflecting extensive sinnusitis. Hospitalist consult done and pt given oral keflex and prednisone with no improvement. Pt relieved only with stadol. No ENT service available per ER here at [facility] and pt transferred to a higher level care [facility] where evaluation and treatment of refractory sinnusitis may be done by ENT specialist. PT to follow up with clinic in 1wk. Shared decision making and pt transferred aware of risks, benefits and alternatives. Condition at discharge: Fair Disposition: 09 ADMITTED INPATIENT Plan - Provider Discharge Summary Additional instructions: [] Smoking cessation referral if applicable(refer to patient education folder for contact #) [] Refer to [facility] Booklet Call your doctor immediately for: * Fever > 100.5 * Heavy vaginal bleeding ( >1 pad per hour) * Severe persistent headache * Shortness of breath * Reddened, hot, painful area to leg or breast * Drainage or odor from incision. * Keep incision clean and dry at all times and follow doctor's instructions regarding bathing/showering - Follow up plan Follow up: CHANO GUSTAFSON MD [Primary Care Provider] - 7 Days
== END 2022-01-21 21:02 | disposition short-term general hospital (02) | DRG 781 ==
LOC: TRG 14:00 → APU 14:02 → TRG 19:52 → OBSVTOIN 19:53 → LD 19:53
PROVIDERS: ADMIT Obstetrics & Gynecology; ATTEND Obstetrics & Gynecology
DX: O99.513 Diseases of the respiratory system complicating pregnancy, third trimester (principal); Z3A.30 30 weeks gestation of pregnancy; Z20.822 Contact with and (suspected) exposure to COVID-19; J01.00 Acute maxillary sinusitis, unspecified
CPT/HCPCS: 36415; 70450; 76819; 80053; 80307; 81001; 82565; 82570; 83615; 84156; 84450; 84460; 84550; 85027; 86850; 86900; 86901; G0378; J0595; J0702; J2405; J7512; U0003

== ENCOUNTER 2022-02-05 13:02 | Outpatient (CLI) | payer MEDICAID ==
[2022-02-05 14:57] LABS: Bacteria,Urine 1+ /HPF (Negative); Mucus,Urine FEW /HPF; WBC,Urine < 1.0 /HPF (0.0-6.0)
[2022-02-05 15:00] LABS: Color,Urine Yellow (Yellow)
[2022-02-05] MEDS ORDERED: BETAMET ACET/BETAMET NA PH 6 MG/ML INJ 5 ML MDV IM SCH (17:04)
[2022-02-05 17:06] VITALS: BP 125/78
== END 2022-02-05 14:00 | disposition home or self-care (01) ==
LOC: TRG 13:02 → APU 13:04 → TRG 14:00
PROVIDERS: ATTEND Obstetrics & Gynecology
DX: O62.9 Abnormality of forces of labor, unspecified (principal); Z3A.33 33 weeks gestation of pregnancy
CPT/HCPCS: 36415; 59025; 81001; 82731; 96372; J0702; 96360

== ENCOUNTER 2022-02-06 17:04 | Outpatient (CLI) | payer MEDICAID ==
[2022-02-06] MEDS ORDERED: BETAMET ACET/BETAMET NA PH 6 MG/ML INJ 5 ML MDV IM ONE (18:45)
== END 2022-02-06 18:56 | disposition home or self-care (01) ==
LOC: TRG 17:04 → APU 17:08 → TRG 18:56
PROVIDERS: ATTEND Obstetrics & Gynecology
DX: Z34.93 Encounter for supervision of normal pregnancy, unspecified, third trimester (principal); Z3A.33 33 weeks gestation of pregnancy
CPT/HCPCS: 96372; J0702